=== PATIENT | male | born 1965 | race Caucasian/White ===

== ENCOUNTER 2022-11-09 13:46 | Emergency (ER) | payer OTHER, MEDICAID ==
[~2022-11-09] VITALS: Ht 167.6 cm; Wt 108.9 kg
[2022-11-09 13:51] VITALS: BP 198/106; PULSE 101; RESP 20; TEMP 98.4; O2SAT 100
--- NOTE | 2022-11-09 13:51 | NUR ---
PT PLACED IN BED 03 BY [facility]
[2022-11-09 14:00] VITALS: O2SAT 100
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
[2022-11-09 14:10] LABS: BASOPHILS # (AUTO) 0.1 K/uL (0.00-0.22); BASOPHILS % (AUTO) 0.9 % (0.0-2.0); EOSINOPHILS # (AUTO) 0.2 K/uL (0-0.4); EOSINOPHILS % (AUTO) 3.4 % (0.0-4.0); HEMATOCRIT 44.6 % (36-52); HEMOGLOBIN 15.3 g/dL (12.0-18.0); LYMPHOCYTES # (AUTO) 1.2 K/uL (2.0-11.5); LYMPHOCYTES % (AUTO) 17.4 % (20.5-51.1); MEAN CORPUSCULAR HEMOGLOBIN 30 pg (27-31); MEAN CORPUSCULAR HGB CONC 34 g/dL (33-37); MEAN CORPUSCULAR VOLUME 86.7 fL (80-94); MONOCYTES # (AUTO) 0.5 K/uL (0.8-1.0); MONOCYTES % (AUTO) 7.7 % (1.7-9.3); NEUTROPHILS % (AUTO) 70.6 % (42.2-75.2); PLATELET COUNT (AUTO) 198 K/uL (140-450); RED BLOOD CELL COUNT(AUTO) 5.15 MIL/uL (4.20-6.10); RED CELL DISTRIBUTION WIDTH 13.3 % (11.6-13.7); WHITE BLOOD COUNT (AUTO) 7.1 K/uL (4.8-10.8)
[2022-11-09 14:26] LABS: ALBUMIN 3.9 g/dL (3.4-5.0); ANION GAP 15.2 (8-16); ASPARTATE AMINOTRANSFERASE 34 U/L (15-37); CHLORIDE 97 mmol/L (98-107); CREATININE 1.1 mg/dL (0.6-1.3); GFR ARICAN-AMERICAN 89 mL/min (>90); GLUCOSE 276 mg/dL (74-106); POTASSIUM 4.2 mmol/L (3.5-5.1); SODIUM SERUM 133 mmol/L (136-145); TOTAL BILIRUBIN 0.3 mg/dL (0.0-1.0); UREA NITROGEN, BLOOD 16 mg/dL (7-18)
[2022-11-09] MEDS ORDERED: KETOROLAC 30 MG/ML VIAL ONE (14:39)
[2022-11-09] MEDS ORDERED: LIDOCAINE 5% 1 EA PATCH TP ONE ×2 (14:39→14:40)
[2022-11-09] MEDS ORDERED: KETOROLAC 30 MG/ML VIAL IM ONE (14:40)
[2022-11-09] MEDS ORDERED: methocarbamoL 500 MG TAB PO ONE (15:05)
[2022-11-09] MEDS ORDERED: IBUP-2213 PO (15:52)
[2022-11-09] MEDS ORDERED: LID5T TP (15:52)
[2022-11-09] MEDS ORDERED: CYCL-711 PO (15:52)
[2022-11-09 16:10] VITALS: O2SAT 98
[2022-11-09 16:19] VITALS: BP 146/81; PULSE 88; RESP 20; TEMP 98.4; O2SAT 99
--- NOTE | 2022-11-09 16:22 | NUR ---
LIDODERM PATCHED REASSESSED: PT STATES RELIEF 05/14.
--- NOTE | 2022-11-09 16:27 | NUR ---
Patient discharged with v/s stable. Written and verbal after care instructions FOR CHEST WALL PAIN AND CERVICAL STRAIN AND SPRAIN REHAB given and explained. Patient alert, oriented and verbalized understanding of instructions. Ambulatory with steady gait. All questions addressed prior to discharge. ID band removed. Patient advised to follow up with PMD. Rx of FLEXIRIL, IBUPROFEN AND LIDODERM PATCH given. Opportunity to ask questions provided and answered. PICKED UP BY PARTNER
--- NOTE | 2022-11-09 16:30 | NUR ---
The patient's care was reviewed and supervised by Ale Keith, RN, RN.
== END 2022-11-09 16:27 | disposition home or self-care (01) ==
LOC: MED 13:46 → EDBD 13:46 → MED 16:27
DX: S20.212A Contusion of left front wall of thorax, initial encounter (principal); S80.12XA Contusion of left lower leg, initial encounter; E87.1 Hypo-osmolality and hyponatremia; E11.65 Type 2 diabetes mellitus with hyperglycemia; I10 Essential (primary) hypertension; Z79.899 Other long term (current) drug therapy; V49.88XA Car occupant (driver) (passenger) injured in other specified transport accidents, initial encounter; Y93.89 Activity, other specified; Y92.89 Other specified places as the place of occurrence of the external cause; Y99.8 Other external cause status
CPT/HCPCS: 36415; 71045; 80053; 84484; 85025; 93005; 96372; 99285; J1885